=== PATIENT | female | born 1955 | race Caucasian/White ===

== ENCOUNTER 2021-09-20 15:40 | Emergency (ER) | payer MEDICARE ==
--- NOTE | 2021-09-20 16:10 | EDM.PDOC ---
ED HPI GENERAL MEDICAL PROBLEM - General Stated Complaint: FELL AND HIT HEAD Time Seen by Provider: 09/20/21 16:02 Source of Information: Reports: Patient History Limitations: Reports: No Limitations - History of Present Illness INITIAL COMMENTS - FREE TEXT/NARRATIVE: 65-year-old female who reports that she fell 3 times today. The first fall was at approximately 10:45 AM while she was walking across an icy road to a school and she slipped on ice and fell landing on her back and striking her occiput on the pavement. She did not have a loss of consciousness and really had no pain with this. She states that she felt fine following this and then at approximately noon she was crossing a road again and slipped on ice and fell landing on her back and striking her head again. There was still no loss of consciousness and she had some soreness in the back of her head but really felt pretty well following this and continued with her normal day and work and then at approximately 2:35 PM today she was walking across another road going to school and she slipped on ice and fell landing on her back again and striking her occiput and at that time she felt somewhat nauseated and did have vomiting times one following this. She also felt dazed but did not lose consciousness. She reports that she had some pain in the back of her head and her neck but these pains have since resolved and she is here with her friend for evaluation secondary to the also with head injuries. She states she was feeling completely fine prior to this and had been eating and drinking normally. She only had vomiting 1 and the nausea that she had has completely resolved. She has no pain now and would rate her pain as a 0/10. No chest pain. No shortness of breath. No dysuria or hematuria. No cough or nasal congestion. She did eat lunch today. There are no other associated signs or symptoms. There are no other modifying factors. Onset: Today (Beginning at 10:45 AM she had 3 falls.) Duration: Resolved Prior to Arrival Location: Reports: Head, Neck Quality: Reports: Other (Sore) Severity: Mild (Earlier but has resolved now.) Improves with: Reports: None Worsens with: Reports: None Context: Reports: Trauma Associated Symptoms: Reports: No Other Symptoms (Except as above.) Treatments [employer]: Reports: Other (see below) (Nothing.) Generalized Pain Score (Numeric/FACES): 5 - Related Data Allergies Allergy/AdvReac Type Severity Reaction Status Date / Time Sulfa (Sulfonamide Allergy Itching Verified 09/20/21 16:05 Antibiotics) Home Meds: Home Meds Metoprolol Succinate 50 mg PO DAILY 09/20/21 [History] Past Medical History Cardiovascular History: Reports: Arrhythmia (From what I can understand from the patient this is frequent PVCs. She just recently had a workup through [facility]) - Past Surgical History Cardiovascular Surgical History: Reports: Other (See Below) (Cardiac catheterization on 08/19/2021 that was diagnostic. 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.) ED ROS GENERAL - Review of Systems Review Of Systems: See Below Constitutional: Denies: Fever, Chills, Malaise HEENT: Denies: Eye Pain, Throat Pain, Vision Change Respiratory: Denies: Shortness of Breath, Cough Cardiovascular: Denies: Chest Pain, Palpitations Endocrine: Denies: Fatigue GI/Abdominal: Reports: Nausea, Vomiting (x1) : Denies: Dysuria, Hematuria Musculoskeletal: Reports: Neck Pain (Initially after the fall but none now.), Back Pain (Left upper back pain initially after the fall but none now.) Skin: Denies: Rash, Wound Neurological: Reports: Other (No loss of consciousness but dazed). Denies: Dizziness Psychiatric: Denies: Confusion Hematologic/Lymphatic: Denies: Easy Bleeding, Easy Bruising ED EXAM, HEAD INJURY - Physical Exam Exam: See Below Exam Limited By: No Limitations General Appearance: Alert, WD/WN, Mild Distress Head: Normocephalic, Scalp Swelling (Mild in the occipital area. No crepitus. No bony deformity.) Nexus Criteria: Altered Level of Consciousness (Was somewhat dazed) Eyes: Bilateral Eye: EOMI, Normal Inspection (Sclera are anicteric), PERRL Ears: Normal External Exam, Hearing Grossly Normal Nose: Normal Inspection, Normal Mucousa, No Blood Throat/Mouth: Normal Inspection, Normal Oropharynx, Normal Voice, No Airway Compromise Neck: Non-Tender, Full Range of Motion, Normal Alignment, Normal Inspection Respiratory: No Respiratory Distress, Lungs Clear, Normal Breath Sounds, No Accessory Muscle Use, Chest Non-Tender Cardiovascular: Normal Peripheral Pulses, Regular Rate, Rhythm, No Murmur GI/Abdominal Exam: Normal Bowel Sounds, Soft, Non-Tender Back Exam: Normal Inspection. No: Paraspinal Tenderness, Vertebral Tenderness Extremities: Normal Inspection, Normal Range of Motion, Non-Tender, No Pedal Edema, Normal Capillary Refill Neurologic: legal job titles II-XII nml As Tested, No Motor/Sensory Deficits, Alert, Normal Mood/Affect, Oriented x 3 Skin: Normal Color, Warm/Dry, Other (No open wounds.). No: Rash - Burak Coma Score Best Eye Response ([place]): (4) Open Spontaneously Best Verbal Response ([place]): (5) Oriented Best Motor Response ([place]): (6) Obeys Commands [place] Total: 15 #1 Interpretation EKG Date: 09/20/21 Time: 15:56 Rhythm: NSR Rate (Beats/Min): 57 [place]: Normal P-Wave: Enlarged (Probable left atrial enlargement.) QRS: Normal ST-T: Normal QT: Normal Comparison: NA - No Prior EKG EKG Interpretation Comments: Several PVCs. Course - Vital Signs Last Recorded V/S: Last Vital Signs Temp 36.7 C 09/20/21 16:03 Pulse 76 09/20/21 17:00 Resp 20 09/20/21 17:00 BP 169/81 H 09/20/21 17:00 Pulse Ox 94 L 09/20/21 17:00 - Orders/Labs/Meds Orders: Active Orders 24 hr Category Date Time Status Cervical Spine wo Cont [CT] Stat Exams 09/20/21 16:29 Ordered Head wo Cont [CT] Stat Exams 09/20/21 16:29 Taken EKG 12 Lead [EK] Routine Ther 09/20/21 17:02 Ordered - Radiology Interpretation Free Text/Narrative:: CT scan of the cervical spine shows no acute fracture or traumatic subluxation. There are post surgical changes of the posterior instrumented fusion from T1-T2. 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 CT scan of the head shows no acute intracranial hemorrhage or mass effect. There is a left parietal subgaleal hematoma but no calvarial fracture. 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 This is per the [facility] radiologist. - Re-Assessments/Exams Free Text/Narrative Re-Assessment/Exam: 09/20/21 17:40: The patient remains awake and alert. She has been hemodynamically and neurologically stable while in the emergency department. Her EKG showed some PVCs but was otherwise unremarkable. The CT scans of her head and cervical spine showed no acute abnormalities. She did have evidence of chronic strokes. I discussed all this with the patient and we will give her a CD copy of her CT scans and a copy of her CT reports so that she can take it with her. She is flying back to [place] tomorrow. I feel that she has a concussion. Precautions and reasons for return to the emergency department were discussed with the patient while she was in the emergency department over detailed in the patient's discharge instructions. Departure - Departure Time of Disposition: 17:55 Disposition: Home, Self-Care 01 Condition: Good (Stable.) Clinical Impression: Concussion Qualifiers: Encounter type: initial encounter Loss of consciousness presence/duration: without LOC Qualified Code(s): S06.0X0A - Concussion without loss of consciousness, initial encounter Contusion of occipital region of scalp Qualifiers: Encounter type: initial encounter Qualified Code(s): S00.03XA - Contusion of scalp, initial encounter Fall from slipping on ice Qualifiers: Encounter type: initial encounter Qualified Code(s): W00.9XXA - Unspecified fall due to ice and snow, initial encounter - Discharge Information Instructions: Head Injury, Adult, [id number], Facial or Scalp Contusion, [id number], Concussion, Adult, [id number] Additional Instructions: Your EKG showed elated issue. The CT scans of your head and neck showed no fractures and no bleeding. He did have a bruise to your occipital scalp. There was evidence on your CAT scan of several old strokes. You do appear to have a concussion. He should rest. You should avoid any strenuous activity. You should increase your fluid intake. Follow-up with your primary provider in a week or sooner as needed. Back to the emergency department for marked increase in pain, unrelenting vomiting, arm or leg weakness or any other concerning signs or symptoms. Sepsis Event Note (ED) - Evaluation Sepsis Screening Result: No Definite Risk - Focused Exam Vital Signs: Vital Signs Temp Pulse Resp BP Pulse Ox 09/20/21 17:00 76 20 169/81 H 94 L 09/20/21 16:03 36.7 C 39 L 16 167/72 H 95 - My Orders Last 24 Hours: My Active Orders 09/20/21 16:29 Cervical Spine wo Cont [CT] Stat Head wo Cont [CT] Stat 09/20/21 17:02 EKG 12 Lead [EK] Routine - Assessment/Plan Last 24 Hours: My Active Orders 09/20/21 16:29 Cervical Spine wo Cont [CT] Stat Head wo Cont [CT] Stat 09/20/21 17:02 EKG 12 Lead [EK] Routine
== END 2021-09-20 18:04 | disposition home or self-care (01) ==
LOC: FB.ED 15:40
DX: S06.0X0A Concussion without loss of consciousness, initial encounter (principal); S00.03XA Contusion of scalp, initial encounter; Z88.2 Allergy status to sulfonamides; W00.0XXA Fall on same level due to ice and snow, initial encounter
CPT/HCPCS: 70450; 72125; 93005; 99284-25